=== PATIENT | male | born 1975 | race Caucasian/White ===

== ENCOUNTER 2019-10-24 14:58 | Emergency (ER) | payer SELFPAY ==
[~2019-10-24] VITALS: Ht 170.2 cm; Wt 100.0 kg
[2019-10-24] MEDS ORDERED: IBUP-2271 PO (15:04)
[2019-10-24] MEDS ORDERED: ACETAMINOPHEN 500 MG TABLET PO ONE (15:45)
[2019-10-24] MEDS ORDERED: MORPHINE SULFATE 4 MG/ML SYRINGE IVP ONE (18:15)
[2019-10-24 19:03] VITALS: BP 134/87
== END 2019-10-24 20:25 | disposition short-term general hospital (02) ==
LOC: EMS 15:05
DX: S12.690A Other displaced fracture of seventh cervical vertebra, initial encounter for closed fracture (principal); M25.512 Pain in left shoulder; F17.210 Nicotine dependence, cigarettes, uncomplicated; V19.9XXA Pedal cyclist (driver) (passenger) injured in unspecified traffic accident, initial encounter; Y93.55 Activity, bike riding; Y92.488 Other paved roadways as the place of occurrence of the external cause; Y99.8 Other external cause status
CPT/HCPCS: 71046; 72125; 73080; 96374; 99285; J2270